=== PATIENT | female | born 1995 | race Asian ===

== ENCOUNTER 2025-06-20 17:59 | Emergency (ER) | payer SELFPAY ==
[~2025-06-20] VITALS: Ht 170.2 cm; Wt 81.8 kg
[2025-06-20 18:02] VITALS: BP 108/85; PULSE 63; RESP 18; TEMP 98.8; O2SAT 100
[2025-06-20] MEDS ORDERED: CLOT15CR5 TP (20:24)
== END 2025-06-20 20:49 | disposition home or self-care (01) ==
LOC: EMS 17:59
DX: B35.4 Tinea corporis (principal); R21 Rash and other nonspecific skin eruption; Z79.899 Other long term (current) drug therapy
CPT/HCPCS: 99282; Z7502